=== PATIENT | female | born 1980 | race Caucasian/White ===

== ENCOUNTER 2017-04-14 19:19 | Inpatient (IN) | payer OTHER ==
[2017-04-14] MEDS ORDERED: LR 1,000 ML IV PRN (19:25)
[2017-04-14] MEDS ORDERED: OLIVE OIL 118 ML BTL MISC PRN (19:25)
[2017-04-14] MEDS ORDERED: OXYTOCIN 20 UNIT in LR 1,000 ML IV PRN (19:25)
[2017-04-14] MEDS ORDERED: TERBUTALINE SULFATE 1 MG/ML VIAL IV PRN (19:25)
[2017-04-14] MEDS ORDERED: EPSOM SALT 454 GM TP PRN (19:25)
[2017-04-14 20:43] LABS: % IMMATURE GRANULYOCYTES 0.4 % (0.0-1.1); ABSOLUTE IMMATURE GRANULOCYTES 0.04 10^3/uL (0.00-0.10); ADD DIFF? NO; ADD MORPH? NO; ADD SCAN? NO; ATYPICAL LYMPHOCYTE FLAG 0 (0-99); FRAGMENT RBC FLAG 0 (0-99); HEMOGLOBIN 13.1 g/dL (12.6-16.3); LEFT SHIFT FLG 0 (0-99); LIPEMIA HEMOLYSIS FLAG 90 (0-99); MEAN CELL HEMOGLOBIN 34.8 pg (27.9-34.1); MEAN CELL HEMOGLOBIN CONCENTR. 36.4 g/dL (32.4-36.7); MEAN CELL VOLUME 95.7 fL (81.5-99.8); MEAN PLATELET VOLUME 10.2 fL (8.7-11.7); PLATELET CLUMPS FLAG 0 (0-99); PLATELET COUNT 150 10^3/uL (150-400); RED BLOOD CELL COUNT 3.76 10^6/uL (4.18-5.33); RED CELL DISTRIBUTION WIDTH 12.6 % (11.5-15.2)
--- NOTE | 2017-04-14 21:06 | SOAPPROG ---
SOAP Progress Note Assessment/Plan: Assessment: Patient is 6 cm dilated. She used acupuncture during her last labor and wanted it for this one. Tx: Right ear with ASP (Acupuncture Semi-Permanent) needles: [place] Acupuncture (BFA): Cingular gyrus, [place] 2, point zero, murray men, thalamus to help with pain, nausea, and vomiting Right side: LI4: Balance the ST and KI meridians. Improve blood flow and circulation. Invigorate the qi. ST 36: Balance the SP and LI meridians. Increase qi, blood, and energy. GB 34: Empirical point to relax the tendons. Help cervix dilate. BL 60: Decend the qi, relax the paraspinal muscles. Balance SI, KI, and BL meridians. BL 65: Pascale point of BL meridian. Reduce any pain and/or back spasms. GB 41: Master point of Tova Syeda (Belt meridian). Relax the waist, open the pelvis. BL 67: Maria Luisa well of the BL meridian. Reduce pain, descend qi downward. Estim: GB 34 - GB 41 Estim: LI 4 - SP 6 Estim: Bilateral BL 23 - BL 32 Left Side: SP 6: Meeting point on three yin (SP, LR, KI), encourage blood flow to uterus. SP 4: Master point of Tino Syeda, open the cervix, encourage downward movement LR 3: Move qi and blood Points chosen using the principles of Dr. Cristobal's Balance Method. [place] retained for forty minutes. Plan: 04/14/17 21:02 Objective: Laboratory Results 04/14/17 20:30 ICD10 Worksheet Patient Problems: Problems Problem Status Onset Labor established Acute
--- NOTE | 2017-04-14 21:19 | PDGENHP ---
History and Physical History and Physical: CARE: [facility] HPI: Patient is a 36 yo @ 38-5wks that presents to L&D with complaints of SROM @ 1900. She reports irregular contractions but due to h/o precipitous delivery she wanted to come to [facility]. She denies any VB. She reports +FM. EDC: 04/23/17 which is based on LMP: 07/16/16 which is known and consistent with Ultrasound at 8 weeks. Her is complicated by: AMA, Rh Negative, h/o precipitous delivery, PATRIZIA @ 18wks Review of Systems: Constitutional: Denies any fever, chills, or fatigue HEENT: denies any visual changes, difficulty swallowing, hearing loss Cardiovascular: Denies any chest pain, palpitations, leg swelling Respiratory: denies any cough, wheezing, or shortness of breathe GI: Denies any nausea, vomiting, diarrhea, constipation : denies any dysuria, urgency, frequency, vaginal bleeding Musculoskeletal: denies any muscle or bone pain Skin: denies any rashes Neuro: denies any headache, seizures, lightheadedness, dizziness, or loss of consciousness Psychiatric: denies any depression, anxiety, or SI/HI thoughts HISTORY: Previous OB history: , precip 7#4 Past medical history: asthma (exercise induced) Past surgical history: shoulder (bone spur), oral surgery Medications: PNV Allergies (list reaction): Latex LABS: Rh: B neg ABS: Neg Rubella: Immune HbsAg: NR HIV: NR VDRL: NR 1hr: 74 GC: Neg Chlamydia: Neg Pap: Normal GBS: negative PHYSICAL EXAM: Constitutional: WN, A&Ox3 HEENT: normocephalic atraumatic, supple Heart: RRR, no murmur Chest: CTA-B Abdomen: Soft, nontender, gravid SVE: 6/90/-1 Extremities: no edema, negative homans sign Neuro: grossly normal Psych: normal affect assessment: Reassuring FHTs, cat 1 FHR Tracing +accels, no decels, moderate variability Contractions: toco q 5-10min Assessment: 1) 36yo with IUP@ 38-5wks 2) PROM/early labor 3) GBS negative 4) Cat 1 FHR tracing Plan: 1) Admit to L&D 2) expectant management 3) acupuncture/pain management PRN 4) anticipate
[2017-04-14] MEDS ORDERED: LIDOCAINE 1% 300 MG/30 ML SDV ONE (21:32)
[2017-04-14] MEDS ORDERED: OXYTOCIN 10 UNIT/ML VIAL ONE (21:33)
[2017-04-14] MEDS ORDERED: AMMONIA AROMATIC 1 EACH AMP IH ONE (21:33)
[2017-04-14] MEDS ORDERED: MISOPROSTOL 200 MCG TAB ONE (21:33)
[2017-04-14] MEDS ORDERED: OLIVE OIL 118 ML BTL ONE (21:33)
[2017-04-14] MEDS: IBUPROFEN 600 MG TAB PO PRN (22:06)
[2017-04-14] MEDS ORDERED: HYDROCODONE/APAP 5/325 TAB PO PRN (22:30)
[2017-04-14] MEDS ORDERED: SIMETHICONE 80 MG TAB CHEW PO PRN (22:30)
[2017-04-14] MEDS ORDERED: HYDROCORTISONE 0.5% CREAM TP PRN (22:30)
[2017-04-14] MEDS ORDERED: ACETAMINOPHEN 325 MG TAB PO PRN (22:30)
--- NOTE | 2017-04-14 22:35 | OBDEL ---
Info Type: Vaginal Presentation at Delivery: Vertex L&D Analgesia/Anesthesia Type: None GBS+: No Intrapartum Medications: Generic Name Dose Route Start Last Admin Trade Name Samq PRN Reason Stop Dose Admin Ibuprofen 600 mg 04/14/17 19:25 04/14/17 22:06 Motrin PO 10/11/17 19:24 600 mg Q6HRS PRN Administration post , inflammation Indications for Delivery: Spontaneous Labor, SROM Vaginal Delivery - Delivery Provider Delivery Physician/CNM: Emilia Mars - Labor and Delivery Onset of Contractions Date: 04/14/17 Onset of Contractions Time: 20:00 Onset of Contractions Type: Spontaneous Rupture of Membranes Date: 04/14/17 Rupture of Membranes Time: 19:00 Rupture of Membranes Type: Spontaneous Amniotic Fluid Color: Clear Dilation Complete Date: 04/14/17 Dilation Complete Time: 21:30 Placenta Delivery Date: 04/14/17 Placenta Delivery Time: 21:50 Total Hours of Labor: 1 Vaginal Sponge Count Correct: Yes Vaginal Needle Count Correct: Yes Vaginal Sweep Performed: Yes EBL: 200 Delivery Comment: precipitous delivery, acupuncture by Andreia Randolph, labored in tub for approx 45 min [place] Data CHANDA: 04/23/17 Gestational Age: 38 week(s) and 5 day(s) James Delivery Date: 04/14/17 Delivery Time: 21:40 Sex of : Female Score (1 Min): 9 Score (5 Min): 9 ICD10 Worksheet Patient Problems: Problems Problem Status Onset (normal spontaneous vaginal delivery) Acute Precipitous delivery Acute Labor established Acute - ICD10 Problem Qualifiers (1) (normal spontaneous vaginal delivery) (2) Precipitous delivery
[2017-04-15] MEDS: IBUPROFEN 600 MG TAB PO PRN ×3 (05:03→17:10)
--- NOTE | 2017-04-15 09:28 | OBPP ---
Progress Note Assessment/Plan: Assessment: well. nipples intact. ff@u scant rubra lochia perineum approximated pain well managed Plan:pp day 1 04/15/17 09:26 Subjective/ Course: 04/15/17 09:25 Doing well. Denies difficulties. Pain well managed. Voiding without difficulty Objective: 04/14/17 20:30 Patient ABO/Rh B NEGATIVE 04/15/17 00:10 Temp Pulse Resp BP Pulse Ox 36.2 C 70 16 110/64 94 04/15/17 08:00 04/15/17 08:00 04/15/17 08:00 04/15/17 08:00 04/15/17 08:00 Uterine Position/Fundal Height: At Umbilicus Uterine Tone: Firm Physical Exam - Physical Exam General Appearance: WD/WN, alert, no apparent distress Abdomen: other (ff@u/ scant rubra lochia) Extremities: normal range of motion, Rocio's sign (negative bilaterally) DTR- Lower Extremities: Knee (R): 1+, Knee (L): 1+ (no clonus) Skin: normal color, warm/dry Neuro/Psych: no motor/sensory deficits, alert, normal mood/affect
[2017-04-15] MEDS: DOCUSATE SODIUM 100 MG CAP PO PRN (11:02)
[2017-04-16] MEDS: IBUPROFEN 600 MG TAB PO PRN ×2 (03:55→09:51)
--- NOTE | 2017-04-16 09:07 | OBPP ---
Progress Note Assessment/Plan: Assessment: PPD 2 s/p Plan: Routine care, d/c home 04/16/17 09:05 Subjective/ Course: 04/15/17 09:25 Doing well. Denies difficulties. Pain well managed. Voiding without difficulty 04/16/17 09:06 Pt doing well. Tender nipples last noc with latching similar to her first child. But improved this am. BLd is light. urinating fine. hydrating well. Objective: 04/14/17 20:30 Patient ABO/Rh B NEGATIVE 04/15/17 00:10 Temp Pulse Resp BP Pulse Ox 36.2 C 66 16 113/69 95 04/15/17 19:50 04/15/17 19:50 04/15/17 19:50 04/15/17 19:50 04/15/17 19:50 Uterine Position/Fundal Height: Umbilicus -1 Uterine Tone: Firm Physical Exam - Physical Exam Abdomen: non-tender, soft Extremities: non-tender, pedal edema (none) Skin: normal color, warm/dry Neuro/Psych: alert, normal mood/affect
[2017-04-16 09:09] VITALS: BP 101/62; PULSE 61; RESP 15; TEMP 97.4; O2SAT 97
[2017-04-16] MEDS: DOCUSATE SODIUM 100 MG CAP PO PRN (09:50)
== END 2017-04-16 12:10 | disposition home or self-care (01) | DRG 775 ==
LOC: OBSVTOIN 19:19 → FLD 19:19 → FOB 04-15 00:12
PROVIDERS: ADMIT Advanced Practice Midwife; ATTEND Obstetrics & Gynecology
PROC: 10E0XZZ Delivery of Products of Conception, External Approach (ICD-10-PCS; principal; 2017-04-14)
PROC: 3E0234Z Introduction of Serum, Toxoid and Vaccine into Muscle, Percutaneous Approach (ICD-10-PCS; principal; 2017-04-14)
DX: O62.3 Precipitate labor (principal); O26.893 Other specified pregnancy related conditions, third trimester; Z67.91 Unspecified blood type, Rh negative; Z3A.38 38 weeks gestation of pregnancy; Z37.0 Single live birth